=== PATIENT | female | born 1975 | race Caucasian/White ===

== ENCOUNTER 2017-10-28 14:39 | Emergency (ER) | payer SELFPAY ==
[2017-10-28 15:08] LABS: Bilirubin Negative (Negative); Blood, Urine Large (Negative); Clarity Clear (Clear); Glucose, Urine (Dipstick) Negative (Negative); Leukocyte Negative (Negative); Nitrite Negative (Negative); Protein, Urine (Dipstick) Negative (Neg-Trace); Urobilinogen 0.2 mg/dL (0.2-1.0); pH, Urine 5.5 (5.0-9.0)
[2017-10-28 15:14] LABS: WBC/HPF 0-3 HPF (0-3)
[2017-10-28 15:15] LABS: Bacteria/HPF 1+ HPF (None Seen)
[2017-10-28 15:29] LABS: Hemoglobin 13.8 g/dL (12.0-16.0); Mean Corpuscular Hemoglobin 31.2 pg (27.0-31.0); Mean Corpuscular Volume 94.5 fl (81.0-99.0); Mean Platelet Volume 7.4 fL (7.4-10.4); Platelet Count 303 thou/uL (130-400); RBC Distribution Width 12.1 % (11.5-14.5); Red Blood Cell (RBC) Count 4.43 mill/uL (4.20-5.40); White Blood Cell (WBC) Count 9.7 thou/uL (4.8-10.8)
[2017-10-28] MEDS ORDERED: Ondansetron HCl/PF 4 MG/2 ML Vial ONE (15:38)
[2017-10-28] MEDS ORDERED: Fentanyl 100 MCG/2 ML VIAL ONE (15:39)
[2017-10-28 15:43] LABS: #Basophils 0.1 thou/uL (0.0-0.2); #Eosinphils 0.2 thou/uL (0.0-0.7); #Monocytes 0.8 thou/uL (0.11-0.59); #Neutrophils 4.8 thou/uL (1.40-6.50); %Basophils 0.8 % (0.0-1.0); %Eosinophils 2.2 % (0.0-10.0); %Lymphocytes 33.4 % (21.0-51.0); %Monocytes 9.2 % (0.0-10.0); %Neutrophils 54.5 % (42.0-75.0)
[2017-10-28 16:02] LABS: ALT (SGPT) 12 U/L (8-55); AST (SGOT) 14 U/L (5-34); Albumin 3.8 g/dL (3.5-5.0); Alkaline Phosphatase 49 U/L (40-150); Anion Gap 12 mmol/L (10-20); BUN (Urea Nitrogen) 10 mg/dL (7.0-18.7); Bilirubin, Total 0.4 mg/dL (0.2-1.2); Calc. Creatinine Clearance 0 mL/min (70-130); Calcium 9.3 mg/dL (7.8-10.44); Carbon Dioxide 23 mmol/L (22-29); Chloride 108 mmol/L (98-107); Estimated GFR-MDRD 75; Globulin 2.7 g/dL (2.4-3.5); Glucose 88 mg/dL (70-105); Potassium 3.9 mmol/L (3.5-5.1); Protein, Total 6.5 g/dL (6.0-8.3); Sodium 139 mmol/L (136-145)
--- NOTE | 2017-10-28 18:13 | CT ---
ABDOMEN CT WITH CONTRAST PELVIC CT WITH CONTRAST 10/28/17 HISTORY: Low abdominal pain, difficulty urinating. COMPARISON: None. TECHNIQUE: Abdomen and pelvic CT are performed with IV and oral contrast. Coronal reformatted images are submitt ed for interpretation. FINDINGS: ABDOMEN CT: Linear opacity in lung bases may represent scar/atelectasis. Normal cardiac silhouette. No significan t pericardial fluid. Visualized aorta has a normal caliber. No periaortic fat stranding. Symmetric attenuation of the psoas muscles. Gallbladder is surgically absent. Intra and extrahepatic portal vein is patent. the liver, spleen, pancreas and right adrenal gland have appropriate enhanceme nt. Oval hypodense mass emanating from the left adrenal gland measuring 2.2 x 1.7 cm with an attenuation coefficient of 29 Hounsfield units. The lesion is indeterminate at this time. No gastrohepatic, retrocrural or periportal lymphadenopathy. A few scattered nonspecific lymph node is noted throughout the abdominal mesentery as well as in the periaortic and aortocaval region. No mesenteric mass, free air or free fluid. Symmetric enhancement of the kidneys. Bilaterally, no evidence of hydronephrosis, nephrolithiasis or significant perinephric fat stranding. Bilateral ureters have a normal caliber. No hydroureter, periu reteral fat stranding or ureterolithiasis. Gastric mucosa, duodenum and multiple normal caliber small bowel loops are noted. Ileocecal junction is normal. Normal caliber appendix. The cecum, ascending colon, transverse colon, have appropriate di ameter mucosa. Limited evaluation of the left hemicolon due to inadequate distention. There is extens zaira diverticulosis in the descending colon and sigmoid colon. There appears to be mucosal thickening involving the proximal to mid sigmoid colon which may be due to inadequate distention or remote bouts of diverticulitis. Currently, no active inflammation. PELVIC CT: Limited evaluation of the urinary bladder. Mucosal prominence likely due to inadequate distention. He terogeneous enhancement involving the left and right adnexa which may represent adnexa structures. Ho wever, small infected fluid collections, specifically in the right adnexa cannot be completely exclud ed. There is a hypodensity in the left adnexa, measuring 3.5 x 2.5 cm with an attenuation coefficient of -14 Hounsfield units likely representing an adnexal cyst. No lytic or blastic lesions in the osseous structures. IMPRESSION: 1. Nonspecific mesenteric and retroperitoneal lymph nodes. 2. Normal caliber appendix. 3. No evidence of obstructive uropathy. 4. Diverticulosis without definite diverticulitis. Mucosal prominence of the sigmoid colon, felt to be due to inadequate distention. Colonoscopy is recommended to exclude underlying pathology. 5. Hypodensities with peripheral enhancement in the left and right adnexa which may represent re sidual adnexal tissue/structures. The uterus is surgically absent. Small infected fluid collection ca nnot be completely excluded. Correlate clinically specifically for right adnexal tenderness. Simple c yst in the left adnexa is noted. POS: LAURA
== END 2017-10-28 17:53 | disposition home or self-care (01) ==
LOC: NAV ERS 14:39
DX: K57.92 Diverticulitis of intestine, part unspecified, without perforation or abscess without bleeding (principal); F17.210 Nicotine dependence, cigarettes, uncomplicated; K21.9 Gastro-esophageal reflux disease without esophagitis; Z79.899 Other long term (current) drug therapy
CPT/HCPCS: 74177; 80053; 81003; 81015; 85025; 87077; 87086; 87186; 96361; 96374; 96375; 99406; J2405; J3010